=== PATIENT | female | born 1995 | race Caucasian/White ===

== ENCOUNTER 2025-07-24 22:01 | Outpatient (CLI) | payer OTHER ==
[2025-07-24 21:21] VITALS: BP 125/70
== END 2025-07-24 22:21 | disposition left against medical advice (07) ==
LOC: OBS/DEL 22:01
PROVIDERS: ATTEND Obstetrics & Gynecology
DX: O26.893 Other specified pregnancy related conditions, third trimester (principal); Z3A.38 38 weeks gestation of pregnancy

== ENCOUNTER 2025-08-06 10:27 | Inpatient (IN) | payer OTHER ==
[~2025-08-06] VITALS: Ht 172.7 cm; Wt 3.2 kg
[2025-08-06 10:17] VITALS: BP 125/71; BP 125/74
[2025-08-06] MEDS ORDERED: MISOPROSTOL 25 MCG TABLET VAG ONE (11:00)
[2025-08-06 11:16] LABS: BASO % 0.3 % (0.1-1.2); EOS # 0.07 (0.04-0.54); EOS % 0.6 % (0.7-7.0); LYMPH # 1.38 (1.18-3.74); LYMPH % 12.4 % (19.3-53.1); MEAN PLATELET VOLUME 11.70 fl (9.4-12.4); MONO # 0.84 (0.24-0.82); MONO % 7.6 % (4.7-12.5); NEUT # 8.69 (1.56-6.13); NEUT % 78.3 % (34.0-71.1); RED CELL DISTRIBUTION WIDTH 13.3 % (11.6-14.4)
[2025-08-06] MEDS ORDERED: DULCOLAX5 MG (11:19)
[2025-08-06] MEDS ORDERED: PRENATA CHEWAB1 EACH PO (11:19)
[2025-08-06] MEDS ORDERED: RINGERS SOLUTION,LACTATED 1,000 ML IV SCH ×2 (11:30→21:30)
[2025-08-06 11:35] LABS: INR < 0.93
[2025-08-06 11:39] LABS: ALT/SGPT 20.0 U/L (12-78); AST/SGOT 22.0 U/L (15-37); BILIRUBIN TOTAL 0.26 mg/dL (0.3-1.2); BUN CREA RATIO 15.0 (7.0-25.0); CREATININE SERUM 0.59 mg/dL (0.55-1.02); GFR 119.68; GLOBULINA 3.1 G/DL (2.4-3.5); GLUCOSE FASTING 105.0 mg/dL (65-100); OSMOLALITY SERUM 278.0 MOSM/KG (275-295)
[2025-08-06 15:05] VITALS: BP 124/74
[2025-08-06] MEDS ORDERED: OXYTOCIN 500 ML IV ONE (18:00)
[2025-08-06 18:32] VITALS: BP 129/74
[2025-08-06] MEDS ORDERED: MORPHINE SULFATE 4 MG/ML CARTRIDGE IV PRN (21:30)
[2025-08-06] MEDS ORDERED: CEFAZOLIN SODIUM 1,000 MG VIAL IV ONE (21:30)
[2025-08-06] MEDS ORDERED: CITRIC ACID/SODIUM CITRATE 30 ML BLIST.PACK PO ONE (21:30)
[2025-08-06] MEDS ORDERED: OXYTOCIN 1,000 ML IV SCH (21:30)
[2025-08-06] MEDS ORDERED: OXYTOCIN 10 UNITS/ML VIAL IV ONE (22:30)
[2025-08-06] MEDS ORDERED: ERYTHROMYCIN BASE OPHT 1GM EACH TUBE OP ONE (22:30)
[2025-08-07] MEDS ORDERED: KETOROLAC TROMETHAMINE 30 MG VIAL IV SCH
[2025-08-07] MEDS ORDERED: ACETAMINOPHEN 500 MG GEL..CAP PO SCH
[2025-08-07] MEDS ORDERED: ONDANSETRON HCL 2 MG/ML VIAL IV SCH
[2025-08-07] MEDS ORDERED: MORPHINE SULFATE 4 MG/ML VIAL IV ONE ×2 (00:05→00:35)
[2025-08-07] MEDS ORDERED: SIMETHICONE 125 MG CAPSULE PO SCH (01:00)
[2025-08-07] MEDS ORDERED: GABAPENTIN 300 MG CAPSULE PO SCH (01:00)
[2025-08-07 01:45] VITALS: BP 124/69
[2025-08-07 05:00] VITALS: BP 123/70
[2025-08-07 06:42] LABS: BASO % 0.1 % (0.1-1.2); EOS # 0.00 (0.04-0.54); EOS % 0.0 % (0.7-7.0); LYMPH # 1.23 (1.18-3.74); LYMPH % 9.0 % (19.3-53.1); MEAN PLATELET VOLUME 11.80 fl (9.4-12.4); MONO # 0.84 (0.24-0.82); MONO % 6.1 % (4.7-12.5); NEUT # 11.55 (1.56-6.13); NEUT % 84.1 % (34.0-71.1); RED CELL DISTRIBUTION WIDTH 13.4 % (11.6-14.4)
[2025-08-07 07:55] VITALS: BP 111/63
[2025-08-07] MEDS ORDERED: KETOROLAC TROMETHAMINE 10 MG TABLET PO SCH (08:00)
[2025-08-07] MEDS ORDERED: OxyCODONE HCL 5 MG TABLET (ROXICODONE) PO PRN (08:00)
[2025-08-07] MEDS ORDERED: DOCUSATE SODIUM 100MG CAP PO SCH (09:00)
[2025-08-07 13:02] VITALS: BP 110/61
[2025-08-07 15:48] VITALS: BP 124/73
[2025-08-08] VITALS: BP 112/65
[2025-08-08 08:04] VITALS: BP 108/71
== END 2025-08-08 14:06 | disposition home or self-care (01) | DRG 788 ==
LOC: OB/GYN 10:27 → LDR 10:27 → OB/GYN 23:16
PROVIDERS: ADMIT Obstetrics & Gynecology; ATTEND Obstetrics & Gynecology
PROC: 3E033VJ Introduction of Other Hormone into Peripheral Vein, Percutaneous Approach (ICD-10-PCS; 2025-08-06)
PROC: 3E0P7VZ Introduction of Hormone into Female Reproductive, Via Natural or Artificial Opening (ICD-10-PCS; 2025-08-06)
PROC: 4A1HXCZ Monitoring of Products of Conception, Cardiac Rate, External Approach (ICD-10-PCS; 2025-08-06)
PROC: 10D00Z1 Extraction of Products of Conception, Low, Open Approach (ICD-10-PCS; principal; 2025-08-06 21:00)
DX: O82 Encounter for cesarean delivery without indication (principal); O62.1 Secondary uterine inertia; O69.81X0 Labor and delivery complicated by cord around neck, without compression, not applicable or unspecified; Z3A.40 40 weeks gestation of pregnancy; Z37.0 Single live birth